=== PATIENT | male | born 1990 ===

== ENCOUNTER 2018-08-06 13:52 | Emergency (ER) | payer OTHER ==
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
[2018-08-06 14:12] VITALS: BP 121/72; PULSE 86; TEMP 98.1; BMI 21.5
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
== END 2018-08-06 16:55 | disposition home or self-care (01) ==
LOC: JER 13:52
PROC: 0HQ1XZZ Repair Face Skin, External Approach (ICD-10-PCS; principal; 2018-08-06)
DX: S01.112A Laceration without foreign body of left eyelid and periocular area, initial encounter (principal); W20.8XXA Other cause of strike by thrown, projected or falling object, initial encounter; Y93.89 Activity, other specified; Y92.159 Unspecified place in reform school as the place of occurrence of the external cause; G40.909 Epilepsy, unspecified, not intractable, without status epilepticus; F99 Mental disorder, not otherwise specified
CPT/HCPCS: 12011; 99281-25